=== PATIENT | male | born 1995 | race Native Hawaiian/Other Pacific Islander ===

== ENCOUNTER 2020-12-07 20:02 | Emergency (ER) | payer SELFPAY ==
[~2020-12-07] VITALS: Ht 195.6 cm; Wt 108.9 kg
[2020-12-08 11:45] VITALS: BP 123/57
== END 2020-12-08 11:59 | disposition short-term general hospital (02) ==
LOC: ER 20:05
DX: S12.200A Unspecified displaced fracture of third cervical vertebra, initial encounter for closed fracture (principal); S01.111A Laceration without foreign body of right eyelid and periocular area, initial encounter; R55 Syncope and collapse; Z20.822 Contact with and (suspected) exposure to COVID-19; W19.XXXA Unspecified fall, initial encounter; Y93.89 Activity, other specified; Y99.8 Other external cause status; Y92.89 Other specified places as the place of occurrence of the external cause
CPT/HCPCS: 36415; 70450; 70486; 72125; 87426; 99285; L0120